=== PATIENT | male | born 1995 | race Caucasian/White ===

== ENCOUNTER 2019-01-29 11:26 | Emergency (ER) | payer OTHER, SELFPAY ==
[2019-01-29 11:37] VITALS: BP 138/77; PULSE 76; RESP 20; TEMP 36.8; O2SAT 98; BMI 25.1
--- NOTE | 2019-01-29 11:41 | DI.RAD.S_ITS ---
PROCEDURE: XR CHEST 2V INDICATIONS: productive cough TECHNIQUE: 2 views of the chest were acquired. COMPARISON: None. FINDINGS: Surgical changes and devices: None. Lungs and pleura: Lungs are clear. No pleural effusions or pneumothorax. Mediastinum: Mediastinal contours are normal. Heart size is normal. Bones and chest wall: No suspicious bony abnormalities. Soft tissues appear unremarkable. IMPRESSION: No acute cardiopulmonary disease process. Dictated by: Urmila De MD, PhD on 01/29/2019 at 12:00 Approved by: Urmila De MD, PhD on 01/29/2019 at 12:00
--- NOTE | 2019-01-29 13:03 | ED_ITS ---
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 Patient reports last few days patient is having increasing productive cough with fever and T-max as 102, chills, night sweats, chest congestion, sinus pressure and headache. Patient denies nuchal rigidity, unusual rash, chest pain, or wheezing. Patient has a few history of pneumonia and he was ho spitalized 2 years ago for a couple of days. He also had remote history of pneumonia in 2003. Patient had used Tylenol for discomfort and fever at home. He had not received flu immunization for this season. Related Data Home Medications Medication Instructions Recorded Confirmed clobetasol 1 applic TOPICAL DIRECTED 01/29/19 01/29/19 Previous Rx's Medication Instructions Recorded azithromycin 250 mg PO DAILY 5 Days #6 tab 01/29/19 benzonatate [Tessalon Perles] 100 mg PO BID-TID PRN #10 cap 01/29/19 Allergies Allergy/AdvReac Type Severity Reaction Status Date / Time No Known Drug Allergies Allergy Verified 01/29/19 11:40 Review of Systems <Mark March [facility] - Last Filed: 01/30/19 01:56> Review of Systems Narrative: General: See HPI HEENT: Denies sinus pain, ear pain, sore throat, difficulty swallowing, dizziness. Respiratory: See HPI Cardiovascular: Denies chest pain, palpitations, orthopnea, edema. Gastrointestinal: Denies nausea, vomiting, abdominal pain, diarrhea, constipation, melena. : Denies dysuria, frequency, incontinence, hematuria, urinary retention. Musculoskeletal: Denies weakness, joint pain or bony pain. Skin: Denies rash, skin lesions, or other. Neurologic: Denies weakness, headache, numbness, change in speech, confusion, seizures, incoordination. Psychiatric: No concerning psychosocial issues. 12-point review of systems is negative except for those stated above. Patient History <JACEY Vickers - Last Filed: 01/30/19 01:56> Medical History Pneumonia (Acute) Surgical History No pertinent past surgical history (Acute) Social History Smoking Status: Never smoker alcohol intake frequency: a few times a month Substance Use Type: does not use Exam <JACEY Vickers - Last Filed: 01/30/19 01:56> Narrative Exam Narrative: GEN: Alert, oriented x 3, well appearing and nourished, and in no acute distress. Head: Normal cephalic, atraumatic. No scalp or temporal tenderness, palpable mass or rash. EYES: Pupils are equal, round, and reactive to light and accommodation. Extraocular muscles are intact bilaterally. There is no subconjunctival hemorrhage, exudate and sclera non-icteric. ENT: Bilateral auditory canals and tympanic membranes clear. Hearing grossly intact. Nose without bleeding, purulent discharge or deviation. Facial sinuses nontender to palpate. Mucous membrane moist, no mucosal lesion. Throat without erythema, tonsillar hypertrophy or exudate. Uvula in midline, airway patent. Neck: Trachea in midline. No JVD, non-tender without lymphadenopathy. No masses or thyroid megaly. Supple, non-tender and no meningeal signs. CARDIAC: Normal regular rate and rhythm without murmurs, gallops, or rubs. No chest wall tenderness. No peripheral edema, cyanosis or pallor. Capillary refill is less than 2 seconds. RESPIRATORY: Lungs are clear to auscultate bilaterally. No cough, wheezes but decreased in all lobes. No rales, or rhonchi. No stridor, respiratory distress, increase work of breathing, or accessary muscle used. ABD: Abdomen soft, nontender and non-distended. No guarding or rebound tenderness to palpate. Bowel sounds are normal in all 4 quadrants. There is no palpable masses or organomegaly. EXT: Full painless ROM of all extremities with no loss of sensation, strength, effusion or edema. SKIN: Warm, dry, normal color for patient. No erythema, lesions or rash over visible areas. BACK: Nontender without deformity or crepitance. No flank tenderness. NEUROLOGICAL: Alert and oriented to place, time and person. Sensation and motor function intact bilaterally. No facial droops, dysphasia. PSYCHIATRIC: Good judgement and reason, without hallucinations, abnormal affect or abnormal behaviors during the examination. Initial Vital Signs Initial Vital Signs: Vital Signs Temperature 98.2 F 01/29/19 11:37 Pulse Rate 76 01/29/19 11:37 Respiratory Rate 20 01/29/19 11:37 Blood Pressure 138/77 01/29/19 11:37 Pulse Oximetry 98 01/29/19 11:37 <Qiana Hong DO - Last Filed: 01/30/19 07:12> Initial Vital Signs Initial Vital Signs: Vital Signs Temperature 98.2 F 01/29/19 11:37 Pulse Rate 76 01/29/19 11:37 Respiratory Rate 20 01/29/19 11:37 Blood Pressure 138/77 01/29/19 11:37 Pulse Oximetry 98 01/29/19 11:37 Scores <JACEY Vickers - Last Filed: 01/30/19 01:56> GCS [place] coma scale eye opening: Spontaneous Miriam coma scale verbal response: Orientated Miriam coma scale motor response: Obey commands [place] coma scale total score: 15 Course <JACEY Vickers - Last Filed: 01/30/19 01:56> Orders Ordered: Discontinued Medications Albuterol/Ipratropium (Duoneb) 3 ml INH NOW ONE Stop: 01/29/19 13:16 Last Admin: 01/29/19 13:38 Dose: 3 ml Documented by: RRALSTO Reevaluation(s) Reevaluation #1: No improved chest tightness or breathing after neb treatment. No respiratory distress or increased work of breathing noted. Time: 13:55 Vital Signs Vital signs: Vital Signs - 8 hr 01/29/19 11:37 01/29/19 13:43 Temperature 98.2 F Pulse Rate 76 60 Respiratory Rate 20 16 Blood Pressure 138/77 Pulse Oximetry 98 <Qiana Hong DO - Last Filed: 01/30/19 07:12> Orders Ordered: Discontinued Medications Albuterol/Ipratropium (Duoneb) 3 ml INH NOW ONE Stop: 01/29/19 13:16 Last Admin: 01/29/19 13:38 Dose: 3 ml Documented by: RRALSTO Vital Signs Vital signs: Vital Signs - 8 hr 01/29/19 11:37 01/29/19 13:43 Temperature 98.2 F Pulse Rate 76 60 Respiratory Rate 20 16 Blood Pressure 138/77 Pulse Oximetry 98 [facility] - URI/Sore Throat <Mark Gonzalez-ElvisFRANDY norrisP - Last Filed: 01/30/19 01:56> Differential Diagnosis Differential diagnosis: Likely upper respiratory infection, viral infection, bronchitis and other (Pneumonia) Medical Records Attestation: I reviewed the patient's medical records. Imaging Data Chest x-ray: Radiologist's impression: [address] [address] XRay Report Signed Patient: Len Almanza TMR#: [id number] : 1995Acct:[id number] Age/Sex: 23 / MDate of Service: 01/29/19 Loc: ED Accession Number: [id number] Procedure: XR chest 2V Ordering Provider: Qiana Hong D.O. PROCEDURE: XR CHEST 2V INDICATIONS: productive cough TECHNIQUE: 2 views of the chest were acquired. COMPARISON: None. FINDINGS: Surgical changes and devices: None. Lungs and pleura: Lungs are clear. No pleural effusions or pneumothorax. Mediastinum: Mediastinal contours are normal. Heart size is normal. Bones and chest wall: No suspicious bony abnormalities. Soft tissues appear unremarkable. IMPRESSION: No acute cardiopulmonary disease process. Dictated by: Urmila De MD, PhD on 01/29/2019 at 12:00 Approved by: Urmila De MD, PhD on 01/29/2019 at 12:00 [facility] Narrative Medical decision making narrative: This is a 23-year-old male who has history of pneumonia and hospitalized a [facility] in the past presents to ED with cough for 3 weeks which has been gotten worse for last several days. Patient reports fever, chills, chest congestion with sinus pressure and headache. Patient's chest x- ray does not show acute cardiopulmonary disease process. Nebulizer was tried for patient's symptom and overly decreased lung sounds but it did not help his symptoms. The patient is treated with antibiotic medication, 5 day course of Z- Joel, due to prolonged cough greater than 3 weeks and now he is having fever and chills along patient's history of frequent pneumonia. Patient advised supportive care with adequate hydration and advised to use [id number] Mucinex DM and he was also discharged to home with as needed Tessalon janet. Patient verbalized understanding and agrees with treatment plan. Return precautions were discussed with the patient. Discharge Plan Departure Patient Disposition: Home Clinical Impression: Bronchitis Discharge Date/Time: 01/29/19 14:00 Instructions: DI for Acute Bronchitis Activity Restrictions/Additional Instructions: You have been diagnosed with [acute bronchitis and treat as early pneumonia since this has been going on for 3 weeks and now you're having fever with productive cough with history of pneumonia and hospitalization]. What to do: *Take your medications as directed. Please start her antibiotic medication today. Hydrate well with liquids and take [id number] Mucinex DM for cough and mucus production. You also can use Tessalon per for cough as needed. Take [id number] Tylenol and or Motrin as needed for fever and discomfort. Please take Motrin with food. You can take Tylenol up to 4000 mg in 24 hour period. *Follow up with your primary care provider in 2-3 days, call for an appointment. Let them know you were seen in the ED and that we asked you to be seen in follow up. *Return to ED if you have any new, worsening, or concerning symptoms, such as [chest pain, breathing difficulty, dizziness, unable to tolerate fluids, or any acute concerns. Hand hygiene is important.]. Prescriptions: New azithromycin 250 mg tablet 250 mg PO DAILY 5 Days Qty: 6 RF: 0 benzonatate [Tessalon Perles] 100 mg capsule 100 mg PO BID-TID PRN (Reason: cough) Qty: 10 RF: 0 No Action clobetasol 0.05 % ointment 1 applic TOPICAL DIRECTED RF: 0 Referrals: [facility] [Outside]
[2019-01-29] MEDS: ALBUTEROL/IPRATROPIUM 3 ML AMPUL INH (13:38)
[2019-01-29 13:43] VITALS: PULSE 60; RESP 16
[2019-01-29 13:59] VITALS: PULSE 71; O2SAT 97
== END 2019-01-29 14:00 | disposition home or self-care (01) ==
PROVIDERS: Emergency Provider Nurse Practitioner Family
DX: J20.9 Acute bronchitis, unspecified (principal)
CPT/HCPCS: 71046; 94640; 99282; 99283

== ENCOUNTER → 2021-03-21 15:03 | Outpatient (CLI) | payer OTHER, SELFPAY ==
[2021-03-21 16:25] LABS: COVID19 - ADMIT (NP swab/PCR) Negative (Negative)
== END ==
PROVIDERS: Referring Provider Internal Medicine; Visit Provider Internal Medicine
DX: Z20.822 Contact with and (suspected) exposure to COVID-19 (principal)
CPT/HCPCS: C9803; U0003

== ENCOUNTER → 2021-03-22 08:59 | Outpatient (CLI) | payer OTHER, SELFPAY ==
--- NOTE | 2021-04-02 09:16 | PM.PFT.1 ---
Pulmonary Function Test Referral & Results Date Patient Seen: 03/22/21 Requesting provider: Adarsh Dang Results: The spirometry demonstrates an FVC of 5.75 L which is 104% of predicted. The FEV1 was measured at 4.66 L which is 103% of predicted. The FEV1/FVC ratio was 81 which is 98% of predicted. Lung volumes show an SVC of 5.62 L which is 105% of predicted. The diffusing capacity was measured at 34.07 which is 105% of predicted. The maximum voluntary ventilation was reduced Interpretation: This study demonstrates normal spirometry and diffusing capacity Maximum voluntary ventilation is reduced however, and in the absence of any abnormalities of spirometry this suggest presence of neuromuscular disease Clinical correlation suggested
== END ==
PROVIDERS: Referring Provider Student in an Organized Health Care Education/Training Program; Visit Provider Student in an Organized Health Care Education/Training Program
DX: R06.09 Other forms of dyspnea (principal)
CPT/HCPCS: 94010; 94726; 94729

== ENCOUNTER 2021-03-26 11:44 | Emergency (ER) | payer OTHER, SELFPAY ==
[2021-03-26 12:02] VITALS: BP 147/66; PULSE 94; RESP 18; TEMP 36.7; O2SAT 99; BMI 27.9
[2021-03-26 12:52] LABS: COVID19 -Nasal RAPID Negative (Negative)
== END 2021-03-26 13:30 | disposition left against medical advice (07) ==
PROVIDERS: Emergency Provider Emergency Medicine
DX: Z53.21 Procedure and treatment not carried out due to patient leaving prior to being seen by health care provider (principal)
CPT/HCPCS: 36415; 87635; 99281; C9803

== ENCOUNTER → 2023-02-24 12:55 | Outpatient (CLI) | payer OTHER, SELFPAY ==
--- NOTE | 2023-02-24 | DI.MRI.S_ITS ---
PROCEDURE: MR SHOULDER RT WO CON INDICATIONS: Paresthesia of skin TECHNIQUE: Noncontrast oblique coronal T2 fast spin echo with fat saturation, oblique sagittal T1 spin echo and T2 fast spin echo with fat saturation, axial T1 spin echo and T2 fast spin echo with fat saturation through the shoulder. COMPARISON: None. FINDINGS: Image quality: Excellent. Rotator cuff: The supraspinatus, infraspinatus, and subscapularis tendons appear intact throughout. Sagittal images demonstrate no muscle atrophy. There is moderate to marked tendinopathy involving the distal subscapularis tendon at its attachment the humerus. There is associated reactive marrow edema present near the insertion site on the humeral head. Bones and bursae: No bone marrow contusions or fractures. There is mild to moderate AC joint degenerative change. The acromion demonstrates conventional anatomy, without an os acromiale. No pathologic subacromial-subdeltoid or subcoracoid bursal fluid is present. Capsule and soft tissues: Labrum grossly unremarkable. The long head of the biceps tendon demonstrates normal location and morphology. The rotator interval appears normal, without fibrosis. The coracohumeral ligament is normal in thickness. IMPRESSION: 1. Moderate to marked tendinopathy of the distal subscapularis tendon at its attachment on the humerus. 2. Associated reactive marrow edema within the humeral head at the insertion of the subscapularis. 3. Mild to moderate AC joint degenerative change. Dictated by: Adarsh Flaherty M.D. on 02/24/2023 at 14:07 Approved by: Adarsh Flaherty M.D. on 02/24/2023 at 14:15
--- NOTE | 2023-02-24 | DI.MRI.S_ITS ---
PROCEDURE: MR CERVICAL SPINE WO CON INDICATIONS: Paresthesia of skin TECHNIQUE: Noncontrast sagittal T1 spin echo and T2 fast spin echo, sagittal STIR, foraminal oblique sagittal T2 fast spin echo, and axial gradient echo or T2 fast spin echo through the cervical spine. COMPARISON: None. FINDINGS: Image quality: Excellent. Alignment and Curvature: There is normal bony alignment. Bone Marrow: Marrow demonstrates normal overall signal. Spinal Cord: Visualized spinal cord has normal size and signal. No cerebellar tonsillar herniation. Paraspinous Soft Tissues: No paravertebral masses. Prevertebral soft tissues are normal in thickness. C2-C3: Mild left facet hypertrophy. No canal stenosis or foraminal stenosis. C3-C4: Normal appearance. C4-C5: Mild right facet hypertrophy. No canal stenosis or foraminal stenosis. C5-C6: Minimal disc bulge. No canal stenosis. No foraminal stenosis. C6-C7: Minimal disc bulge. Small right uncovertebral joint osteophyte. Mild right facet hypertrophy. No canal stenosis or foraminal stenosis. C7-T1: Right facet hypertrophy. No canal stenosis. [id number] right foraminal narrowing. IMPRESSION: 1. No canal stenosis or significant foraminal stenosis. 2. Mild cervical spondylitic change. Dictated by: Kolby Garcia M.D. on 02/24/2023 at 13:58 Approved by: Kolby Garcia M.D. on 02/24/2023 at 14:08
== END ==
DX: R20.2 Paresthesia of skin (principal); R93.6 Abnormal findings on diagnostic imaging of limbs
CPT/HCPCS: 72141; 73221